=== PATIENT | female | born 1970 | race African-American/Black ===

== ENCOUNTER 2017-07-17 18:11 | Emergency (ER) | payer MEDICAID, OTHER ==
[2017-07-17] MEDS ORDERED: GUAIFENESIN/D-METHORPHAN (200-20 MG) SYRUP 10 ML PO ONE (19:47)
--- NOTE | 2017-07-17 19:47 | ER Document Report ---
ED Flu Like - General Chief Complaint: Flu Symptoms Stated Complaint: COUGH,HEADACHE,BODY ACHES Time Seen by Provider: 07/17/17 18:38 Mode of Arrival: Ambulatory Information source: Patient Notes: Patient is a 47-year-old female who presents to the ER today for 5 days of worsening sinus pressure, cough, fever, chills, runny nose and sore throat. Patient states that her grandson initially had a cold before her symptoms began on that she was taking care of him. She has not tried anything over-the- counter except for Joseph's cough drops. She admits to fever as high as 101F. She denies any history of asthma, she denies shortness of breath or wheezing. TRAVEL OUTSIDE OF THE [place] IN LAST 30 DAYS: No - Related Data Allergies/Adverse Reactions: No Known Allergies Allergy (Verified 07/17/17 18:15) Past Medical History - General Information source: Patient - Social History Smoking Status: Never Smoker Chew tobacco use (# tins/day): No Frequency of alcohol use: Occasional Drug Abuse: None Family History: Reviewed & Not Pertinent - Past Medical History Cardiac Medical History: Denies: Hx Coronary Artery Disease, Hx Hypertension Pulmonary Medical History: Denies: Hx Asthma Endocrine Medical History: Denies: Hx Diabetes Mellitus Type 1, Hx Diabetes Mellitus Type 2 Renal/ Medical History: Denies: Hx Peritoneal Dialysis Past Surgical History: Reports: Hx Tubal Ligation - Immunizations Hx Diphtheria, Pertussis, Tetanus Vaccination: Yes Review of Systems - Review of Systems Constitutional: See HPI EENT: See HPI Cardiovascular: No symptoms reported Respiratory: See HPI Gastrointestinal: No symptoms reported Genitourinary: No symptoms reported Female Genitourinary: No symptoms reported Musculoskeletal: No symptoms reported Skin: No symptoms reported Hematologic/Lymphatic: No symptoms reported Neurological/Psychological: No symptoms reported Physical Exam - Vital signs Vitals: Temp Pulse Resp BP Pulse Ox 99.7 F 111 H 18 125/91 H 97 07/17/17 18:14 07/17/17 18:14 07/17/17 18:14 07/17/17 18:14 07/17/17 18:14 - Notes Notes: PHYSICAL EXAMINATION: GENERAL: Mildly ill-appearing, but in no acute distress. HEAD: Atraumatic, normocephalic. EYES: Pupils equal round and reactive to light, extraocular movements intact, sclera anicteric, conjunctiva are normal. ENT: ear canals without erythema or foreign body, TMs with air-fluid levels behind bilaterally, nares with mucoid discharge, oropharynx erythematous without enlarged tonsils and without exudates. Moist mucous membranes. Maxillary and frontal sinuses tender to palpation NECK: Normal range of motion, supple with bilateral cervical lymphadenopathy, tender to palpation LUNGS: Cough, otherwise CTAB and equal. No wheezes rales or rhonchi. HEART: Regular rate and rhythm without murmurs ABDOMEN: Soft, no tenderness. No guarding, no rebound BACK: no vertebral tenderness, normal ROM GI/: no CVA tenderness EXTREMITIES: Normal range of motion, no pitting edema. No cyanosis. NEUROLOGICAL: Cranial nerves grossly intact. Normal sensory/motor exams. PSYCH: Normal mood, normal affect. SKIN: Warm, Dry, normal turgor, no rashes or lesions noted Course - Re-evaluation Re-evalutation: 07/17/17 19:46 Strep negative, flu negative - Vital Signs Vital signs: Temp Pulse Resp BP Pulse Ox 98.9 F 100 18 120/78 100 07/17/17 20:15 07/17/17 20:15 07/17/17 18:14 07/17/17 20:15 07/17/17 20:15 Discharge - Discharge Clinical Impression: Bronchitis Sinusitis Qualifiers: Sinusitis location: maxillary Chronicity: acute Recurrence: non-recurrent Qualified Code(s): J01.00 - Acute maxillary sinusitis, unspecified Condition: Stable Disposition: HOME, SELF-CARE Additional Instructions: Return immediately for any new or worsening symptoms. Follow up with primary care provider, call tomorrow to make followup appointment. Prescriptions: Hydrocodone Bit/Homatropine [Hycodan Syrup 5-1.5 mg/5 ml Ud Cup] 5 ml PO Q4HP PRN #120 ml PRN Reason: Amoxicillin 500 mg PO TID #30 capsule Fluticasone Propionate [Flonase Nasal Holland 50 Mcg/Hol[place] 16 gm] 2 sprays NASL Q12 #1 inhaler Referrals: LOCALMD,NO [Primary Care Provider] - Follow up as needed
[2017-07-17 20:17] VITALS: BP 120/78
== END 2017-07-17 20:15 | disposition home or self-care (01) ==
LOC: ER 18:11
DX: J40 Bronchitis, not specified as acute or chronic (principal); J01.00 Acute maxillary sinusitis, unspecified; R50.9 Fever, unspecified; M79.1 Myalgia; R51 Headache; Z98.51 Tubal ligation status
CPT/HCPCS: 99283; 87070; 87880; 87804; J3490

== ENCOUNTER → 2017-07-25 | Outpatient (CLI) | payer OTHER ==
--- NOTE | 2017-07-25 14:59 | WOMENS IMAGING REPORT ---
EXAM DESCRIPTION: BILAT SCREENING MAMMO W/CAD COMPLETED DATE/TIME: 07/25/2017 2:34 pm REASON FOR STUDY: SCREENING MAMMO Z12.31 ENCNTR SCREEN MAMMOGRAM FOR MALIGNANT NEOPLASM OF SHIRA COMPARISON: None. TECHNIQUE: Standard craniocaudal and mediolateral oblique views of each breast recorded using digita l acquisition. LIMITATIONS: None. FINDINGS: No masses, calcifications or architectural distortion. No areas of suspicion. Read with the assistance of CAD. .[facility] - R2 Cenova Version 1.3 .[facility] - R2 Cenova Version 1.3 .[facility] - R2 Cenova Version 2.4 .[facility] [place]2 Cenova Version 2.4 .[facility] - R2 Accounting Assistant Version 9.2 IMPRESSION: NORMAL MAMMOGRAM. BIRADS 1. BREAST DENSITY: b. There are scattered areas of fibroglandular density. BIRAD: 1 NEGATIVE RECOMMENDATION: ROUTINE SCREENING COMMENT: The patient has been notified of the results by letter per SA requirements. Additional no tification policies are in place for contacting patient with suspicious or incomplete findings. Quality ID #[id number]: The [employer] recommends an annual screening mammogram for women aged 40 years or over. This facility utilizes a reminder system to ensure that all patients receive reminder letters, and/or direct phone calls for appointments. This includes reminders for routine scr eening mammograms, diagnostic mammograms, or other Breast Imaging Interventions when appropriate. Th is patient will be placed in the appropriate reminder system. The [employer] ([employer]) has developed recommendations for screening MRI of the breast s in certain patient populations, to be used in conjunction with mammography. Breast MRI surveillanc e may be appropriate for women with more than 20% lifetime risk of developing breast cancer as deter mined by genetic testing, significant family history of the disease, or history of mantle radiation f or Hodgkins Disease. ACR Practice Guidelines 2008. TECHNICAL DOCUMENTATION: FINDING NUMBER: (1) ASSESSMENT: (1) JOB ID: [id number] [employer]- All Rights Reserved
== END ==
LOC: WI 14:17
PROVIDERS: ATTEND Internal Medicine
DX: Z12.31 Encounter for screening mammogram for malignant neoplasm of breast (principal)
CPT/HCPCS: 77067; G0202

== ENCOUNTER 2018-04-03 15:56 | Emergency (ER) | payer OTHER ==
[2018-04-03 16:04] VITALS: BP 119/75
[2018-04-03] MEDS ORDERED: KETOROLAC TROMETHAMINE INJ/PF 30 MG/1 ML SDV IM ONE (16:31)
--- NOTE | 2018-04-03 16:38 | ER Document Report ---
HPI - HPI Pain Level: 4 Notes: Patient is a 47-year-old female who presents to the ED complaining of muscle spasming and tightness to her left trapezius and muscles in her left arm/back 2 -3 weeks. Patient states that she has been picking up her child repetitively over the last few weeks, but denies any other injury. Patient has tried conservative measures for symptoms with minimal relief. The pain will occasionally travel down her left arm. Patient states that she does have chronic neck pain and on occasion the pain will radiate starting from her left side of the neck. Patient states that her spouse did find a knot in her muscle that they tried working out the other day. She denies any drug allergies. Denies any headache, fever, head injury, changes in vision/speech/mentation/ hearing, URI, sore throat, chest pain, palpitations, syncope, cough, shortness of breath, wheeze, dyspnea, abdominal pain, nausea/vomiting/diarrhea, urinary retention, dysuria, hematuria, loss of control of bowel or bladder, numbness/ tingling, muscle paralysis/weakness, or rash. - ROS Systems Reviewed and Negative: Yes All other systems reviewed and negative - CONSTITUTIONAL Constitutional: DENIES: Fever, Chills - EENT EENT: DENIES: Sore Throat, Ear Pain, Eye problems - NEURO Neurology: DENIES: Headache, Weakness, Vision blurred, Dizzinesss / Vertigo - CARDIOVASCULAR Cardiovascular: DENIES: Chest pain - RESPIRATORY Respiratory: DENIES: Trouble Breathing, Coughing - GASTROINTESTINAL Gastrointestinal: DENIES: Abdominal Pain, Black / Bloody Stools - URINARY Urinary: DENIES: Dysuria, Urgency, Frequency - MUSCULOSKELETAL Musculoskeletal: REPORTS: Extremity pain Past Medical History - Social History Smoking Status: Never Smoker Chew tobacco use (# tins/day): Yes Frequency of alcohol use: Occasional Drug Abuse: None Family History: Reviewed & Not Pertinent Patient has suicidal ideation: No Patient has homicidal ideation: No - Past Medical History Cardiac Medical History: Denies: Hx Coronary Artery Disease, Hx Hypertension Pulmonary Medical History: Denies: Hx Asthma Endocrine Medical History: Denies: Hx Diabetes Mellitus Type 1, Hx Diabetes Mellitus Type 2 Renal/ Medical History: Denies: Hx Peritoneal Dialysis Past Surgical History: Reports: Hx Tubal Ligation - Immunizations Hx Diphtheria, Pertussis, Tetanus Vaccination: Yes Vertical Provider Document - CONSTITUTIONAL Agree With Documented VS: Yes Notes: PHYSICAL EXAMINATION: GENERAL: Well-appearing, well-nourished and in no acute distress. HEAD: Atraumatic, normocephalic. EYES: Pupils equal round and reactive to light, extraocular movements intact, sclera anicteric, conjunctiva are normal. ENT: EAC clear b/l. TM's intact b/l without erythema, fluid, or perforation. Nares patent and without discharge. oropharynx clear without exudates. No tonsilar hypertrophy or erythema. Moist mucous membranes. No sinus tenderness. NECK: Normal range of motion, supple without lymphadenopathy. Spurling neg. No midline tenderness. + mild tenderness to the left C-paraspinal mm. + tenderness to the left trapezius with spasming noted, correlating with pain described. LUNGS: Breath sounds clear to auscultation bilaterally and equal. No wheezes rales or rhonchi. HEART: Regular rate and rhythm without murmurs, rubs, gallops. Musculoskeletal: Left shoulder: FROM to passive/active. Strength 5+/5. N/V intact distal. + tenderness to the lat. mm insertion and to the left lateral superior lat mm. which also correlates with pain described. No bony tenderness. Muscle tone intact. Extremities: No cyanosis, clubbing, or edema b/l. Peripheral pulses 2+. Capillary refill less than 3 seconds. NEUROLOGICAL: Normal speech, normal gait. Normal sensory, motor exams PSYCH: Normal mood, normal affect. SKIN: Warm, Dry, normal turgor, no rashes or lesions noted. - INFECTION CONTROL TRAVEL OUTSIDE OF THE [place] IN LAST 30 DAYS: No Course - Re-evaluation Re-evalutation: 04/03/18 16:38 Patient is an afebrile, well-hydrated, 47-year-old female who presents to the ED with trapezius muscle spasm/strain, left arm pain suspect relation with the insertion of the latissimus dorsi area. Vitals are acceptable. PE is otherwise unremarkable for any neurovascular compromise, obvious tendon/ ligament rupture, obvious fracture/dislocation, septic joint. No labs or imaging warranted at this time based on H&P. Patient has no bony tenderness. Sling provided. Toradol given IM today. I will send her home with a prescription for naproxen as well as baclofen. Conservative measures otherwise for symptoms. Patient to call orthopedics tomorrow to schedule an appointment for further evaluation and management. Recheck with your PCM in 3-5 days as well. Return to the ED with any worsening/concerning symptoms otherwise as reviewed discharge. Patient is in agreement. - Vital Signs Vital signs: Temp Pulse Resp BP Pulse Ox 98.6 F 98 18 119/75 98 04/03/18 16:02 04/03/18 16:02 04/03/18 16:02 04/03/18 16:02 04/03/18 16:02 Discharge - Discharge Clinical Impression: Left arm pain, Trapezius muscle spasm Condition: Stable Disposition: HOME, SELF-CARE Instructions: Muscle Relaxers ([facility]), Muscle Strain ([facility]) Additional Instructions: Rest, Ice, Compression, Elevation Use sling as directed Tylenol/ibuprofen as needed Light stretches daily Strength exercises as able Moist heat and massage may help F/u with your PCP in 3-5 days for a recheck Call orthopedics tomorrow to schedule an appointment for further evaluation and management Return to the ED with any worsening symptoms and/or development of fever, headache, chest pain, palpitations, syncope, shortness of breath, trouble breathing, abdominal pain, n/v/d, muscle weakness/paralysis, numbness/tingling, swelling, redness, or other worsening symptoms that are concerning to you. Prescriptions: Baclofen [Baclofen 10 mg Tablet] 5 - 10 mg PO BID PRN #10 tablet PRN Reason: Naproxen 500 mg PO BID PRN #30 tablet PRN Reason: Referrals: SCOUT LYNCH MD [Primary Care Provider] - Follow up in 3-5 days [facility] [Provider Group] - Follow up in 3-5 days
== END 2018-04-03 16:46 | disposition home or self-care (01) ==
LOC: ER 15:56
DX: M62.830 Muscle spasm of back (principal); M62.838 Other muscle spasm; M79.602 Pain in left arm; M54.2 Cervicalgia; G89.29 Other chronic pain
CPT/HCPCS: 99283; 96372; J1885